=== PATIENT | female | born 1965 | race American Indian/Alaskan Native ===

== ENCOUNTER 2020-07-26 15:42 | Emergency (ER) | payer SELFPAY ==
[2020-07-26 16:14] VITALS: BP 147/88
--- NOTE | 2020-07-26 16:41 | XRay Report ---
CHEST 2 VIEWS INDICATION / CLINICAL INFORMATION: DIFFICULT BREATHING. COMPARISON: None available. FINDINGS: SUPPORT DEVICES: None. HEART / MEDIASTINUM: No significant abnormality. LUNGS / PLEURA: Increased opacities are seen in bilateral lower lungs and to lesser extent upper lung s. No pneumothorax. ADDITIONAL FINDINGS: No significant additional findings. IMPRESSION: 1. Bilateral pulmonary opacities most significant in the mid and lower lungs. Signer Name: Derrick Sinclair MD Signed: 07/26/2020 4:37 PM Workstation Name: [id number]
--- NOTE | 2020-07-26 18:50 | Emergency Department Report ---
ED Shortness of Breath HPI - General Chief Complaint: Dyspnea/Respdistress Stated Complaint: EAMON Source: patient, EMS Mode of arrival: Wheelchair Limitations: No Limitations - History of Present Illness Initial Comments: 55-year-old F [place] female Covid positive for the last 5 days presents emergency department complaining of cough and chest congestion with occasional episodes of feeling a little bit short of breath. Reports fever sensations off and on. Ports no hemoptysis, no hematemesis hematochezia. No coryza no cephalgia but does have a vague episodes of diarrhea. -: Gradual Severity: mild Quality: dull Consistency: constant Improves With: nothing Worsens With: nothing Associated Symptoms: cough Treatments Prior to Arrival: none - Related Data Previous Rx's Medication Instructions Recorded Last Taken Type Albuterol Mdi (or & Nicu Only) 2 puff IH QID PRN #1 inhalation 07/26/20 Unknown Rx [ProAir HFA Inhaler] Azithromycin [Zithromax] 500 mg PO QDAY #5 tablet 07/26/20 Unknown Rx Benzonatate [Tessalon Perles] 100 mg PO Q8HR #20 capsule 07/26/20 Unknown Rx dexAMETHasone [Decadron] 4 mg PO Q12H #6 tablet 07/26/20 Unknown Rx Allergies Allergy/AdvReac Type Severity Reaction Status Date / Time No Known Allergies Allergy Unverified 07/26/20 16:13 ED Review of Systems ROS: Stated complaint: EAMON Other details as noted in HPI Comment: All other systems reviewed and negative ED Past Medical Hx - Past Medical History Previous Medical History?: No - Surgical History Past Surgical History?: No - Medications Home Medications: Home Medications Medication Instructions Recorded Confirmed Last Taken Type Albuterol Mdi (or & Nicu Only) 2 puff IH QID PRN #1 inhalation 07/26/20 Unknown Rx [ProAir HFA Inhaler] Azithromycin [Zithromax] 500 mg PO QDAY #5 tablet 07/26/20 Unknown Rx Benzonatate [Tessalon Perles] 100 mg PO Q8HR #20 capsule 07/26/20 Unknown Rx dexAMETHasone [Decadron] 4 mg PO Q12H #6 tablet 07/26/20 Unknown Rx ED Physical Exam - General Limitations: No Limitations General appearance: alert, in no apparent distress - Head Head exam: Present: atraumatic, normocephalic - Eye Eye exam: Present: normal appearance, PERRL, EOMI Pupils: Present: normal accommodation - ENT ENT exam: Present: normal exam, normal orophraynx, mucous membranes moist, TM's normal bilaterally - Neck Neck exam: Present: normal inspection, full ROM - Respiratory Respiratory exam: Present: normal lung sounds bilaterally. Absent: respiratory distress, wheezes, rales, accessory muscle use, decreased breath sounds, prolonged expiratory - Cardiovascular Cardiovascular Exam: Present: regular rate, normal rhythm. Absent: systolic murmur, diastolic murmur, rubs, gallop - GI/Abdominal GI/Abdominal exam: Present: soft, normal bowel sounds - Extremities Exam Extremities exam: Present: normal inspection, normal capillary refill - Back Exam Back exam: Present: normal inspection. Absent: CVA tenderness (R), CVA tenderness (L) - Neurological Exam Neurological exam: Present: alert, oriented X3, CN II-XII intact, normal gait. Absent: abnormal gait, motor sensory deficit, reflexes normal - Psychiatric Psychiatric exam: Present: normal affect, normal mood. Absent: flat affect, manic, homicidal ideation - Skin Skin exam: Present: warm, dry, intact, normal color. Absent: rash, diaphoretic, erythema, urticaria, petechiae, abrasion, ecchymosis ED Course Vital Signs 07/26/20 16:14 Temperature 99.3 F Pulse Rate 77 Respiratory 22 Rate Blood Pressure 147/88 O2 Sat by Pulse 100 Oximetry ED Medical Decision Making - Radiology Data Radiology results: report reviewed [facility] [address] [place] [address] XRay Report Signed Patient: AQUILES HARDWICK MR#: [id number] 51 : 1965 Acct:[id number] Age/Sex: 55 / F ADM Date: 07/26/20 Loc: ED Attending Dr: Ordering Physician: JONATHAN PHILLIPS Date of Service: 07/26/20 Procedure(s): XR chest routine 2V Accession Number(s): [id number] cc: JONATHAN PHILLIPS Fluoro Time In Minutes: CHEST 2 VIEWS INDICATION / CLINICAL INFORMATION: DIFFICULT BREATHING. COMPARISON: None available. FINDINGS: SUPPORT DEVICES: None. HEART / MEDIASTINUM: No significant abnormality. LUNGS / PLEURA: Increased opacities are seen in bilateral lower lungs and to lesser extent upper lungs. No pneumothorax. ADDITIONAL FINDINGS: No significant additional findings. IMPRESSION: 1. Bilateral pulmonary opacities most significant in the mid and lower lungs. Signer Name: Derrick Lora MD Signed: 07/26/2020 4:37 PM Workstation Name: [id number] Transcribed By: CW Dictated By: OLGA LORA MD Electronically Authenticated By: OLGA LORA MD Signed Date/Time: 07/26/201636 DD/ 35 - Medical Decision Making 55-year-old female coronavirus and what appears to be evolving pneumonia bilateral. She still stable vital signs she is able to ambulate with no limitations and satting 100% on room air. Critical care attestation.: If time is entered above; I have spent that time in minutes in the direct care of this critically ill patient, excluding procedure time. ED Disposition Clinical Impression: Pneumonia, Cough Disposition: DC-01 TO HOME OR SELFCARE Is pt being admited?: No Does the pt Need Aspirin: No Condition: Stable Instructions: Bacterial Pneumonia (ED), Cool Mist Vaporizer, Cough, Adult, Community-Acquired Pneumonia, Adult Prescriptions: dexAMETHasone [Decadron] 4 mg PO Q12H #6 tablet Albuterol Mdi (or & Nicu Only) [ProAir HFA Inhaler] 2 puff IH QID PRN #1 inhalation PRN Reason: Shortness Of Breath Benzonatate [Tessalon Perles] 100 mg PO Q8HR #20 capsule Azithromycin [Zithromax] 500 mg PO QDAY #5 tablet Referrals: PRIMARY CAREMD [Primary Care Provider] - 3-5 Days [facility] [Provider Group] - 3-5 Days
== END 2020-07-26 21:20 | disposition home or self-care (01) ==
LOC: ED 15:42
DX: J18.9 Pneumonia, unspecified organism (principal); R05 Cough; Z79.899 Other long term (current) drug therapy
CPT/HCPCS: 71046

== ENCOUNTER 2021-03-18 17:00 | Emergency (ER) | payer BC ==
[2021-03-18] MEDS ORDERED: cloNIDine 0.2 MG TAB PO ONE (17:46)
--- NOTE | 2021-03-18 18:38 | Emergency Department Report ---
ED General Adult HPI - General Chief complaint: Pain General Stated complaint: LT LEG PAIN/LT SHOULDER PAIN/FATIGUE Time Seen by Provider: 03/18/21 17:34 Source: patient Mode of arrival: Ambulatory Limitations: No Limitations - History of Present Illness Initial comments: Patient is a 55-year-old F [place] female with a past medical history of hypertension diabetes who is presenting with some mild fatigue today. She believes her blood pressure may have went up. She has been out of her blood pressure medicine for months. Denies chest pain shortness of breath cough cold congestion nausea vomiting diarrhea or diaphoresis. Does state that she has some mild shoulder discomfort and some hip discomfort today does not know why she would be hurting. No trauma. 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 Earlier today patient states she took her blood sugar and it was 77 which she states is low for her. She ate afterwards and states she is feeling some improvement will still want to get checked out. - Related Data Previous Rx's Medication Instructions Recorded Last Taken Type Albuterol Mdi (or & Nicu Only) 2 puff IH QID PRN #1 inhalation 07/26/20 Unknown Rx [ProAir HFA Inhaler] Azithromycin [Zithromax] 500 mg PO QDAY #5 tablet 07/26/20 Unknown Rx Benzonatate [Tessalon Perles] 100 mg PO Q8HR #20 capsule 07/26/20 Unknown Rx dexAMETHasone [Decadron] 4 mg PO Q12H #6 tablet 07/26/20 Unknown Rx lisinopriL [Lisinopril] 20 mg PO DAILY #30 tablet 03/18/21 Unknown Rx Allergies Allergy/AdvReac Type Severity Reaction Status Date / Time No Known Allergies Allergy Unverified 07/26/20 16:13 ED Review of Systems ROS: Stated complaint: LT LEG PAIN/LT SHOULDER PAIN/FATIGUE Other details as noted in HPI Comment: All other systems reviewed and negative ED Past Medical Hx - Past Medical History Previous Medical History?: Yes Hx Hypertension: Yes Hx Dementia: Yes - Surgical History Past Surgical History?: No - Medications Home Medications: Home Medications Medication Instructions Recorded Confirmed Last Taken Type Albuterol Mdi (or & Nicu Only) 2 puff IH QID PRN #1 inhalation 07/26/20 Unknown Rx [ProAir HFA Inhaler] Azithromycin [Zithromax] 500 mg PO QDAY #5 tablet 07/26/20 Unknown Rx Benzonatate [Tessalon Perles] 100 mg PO Q8HR #20 capsule 07/26/20 Unknown Rx dexAMETHasone [Decadron] 4 mg PO Q12H #6 tablet 07/26/20 Unknown Rx lisinopriL [Lisinopril] 20 mg PO DAILY #30 tablet 03/18/21 Unknown Rx ED Physical Exam - General Limitations: No Limitations General appearance: alert, in no apparent distress - Head Head exam: Present: atraumatic, normocephalic - Eye Eye exam: Present: normal appearance, PERRL, EOMI - ENT ENT exam: Present: mucous membranes moist - Neck Neck exam: Present: normal inspection - Respiratory Respiratory exam: Present: normal lung sounds bilaterally. Absent: respiratory distress, wheezes, rales, rhonchi - Cardiovascular Cardiovascular Exam: Present: regular rate, normal rhythm, normal heart sounds. Absent: systolic murmur, diastolic murmur, rubs, gallop - GI/Abdominal GI/Abdominal exam: Present: soft, normal bowel sounds. Absent: distended, tenderness, guarding, rebound - Extremities Exam Extremities exam: Present: normal inspection - Back Exam Back exam: Present: normal inspection - Neurological Exam Neurological exam: Present: alert, oriented X3 - Psychiatric Psychiatric exam: Present: normal affect, normal mood - Skin Skin exam: Present: warm, dry, intact, normal color. Absent: rash ED Course Vital Signs 03/18/21 17:12 Temperature 97.8 F Pulse Rate 79 Respiratory 16 Rate Blood Pressure 185/94 [Left] O2 Sat by Pulse 97 Oximetry ED Medical Decision Making - EKG Data 03/18/21 18:35 EKG shows a sinus rhythm with a rate of 77. [place] is slightly leftward. There is left anterior fascicular block present. No ST segment elevations. Nonspecific T wave flattening. - Medical Decision Making Patient is presenting with medical noncompliance with her blood pressure medications. Blood pressure was elevated but she is having no signs of endorgan damage at this time. EKG shows no evidence of STEMI. Patient given Catapres and will be restarted on her lisinopril. Patient is minor musculoskeletal pain and can be treated with [id number] pain medications. Critical care attestation.: If time is entered above; I have spent that time in minutes in the direct care of this critically ill patient, excluding procedure time. ED Disposition Clinical Impression: Hypertensive urgency, Muscle ache Disposition: 01 HOME / SELF CARE / HOMELESS Is pt being admited?: No Does the pt Need Aspirin: No Condition: Stable Instructions: Hypertension During , [id number], Musculoskeletal Pain Prescriptions: lisinopriL [Lisinopril] 20 mg PO DAILY #30 tablet Referrals: WISAM FAROOQ MD [Staff Physician] - 3-5 Days Time of Disposition: 18:37
[2021-03-18 18:40] VITALS: BP 182/88
--- NOTE | 2021-03-21 10:51 | Electrocardiograph Report ---
[facility] Test Date: 2021-03-18 Test Time: 18:20:30 Pat Name: AQUILES HARDWICK Department: Room: Gender: F Four H Agent: BLANCA : 1965 Requested By: ADELAIDA BARTHOLOMEW Order Number: [id number] Reading MD: Al Jeffery Measurements Intervals Hendricks Rate: 77 P: 53 HI: 169 QRS: -58 QRSD: 89 T: 74 QT: 416 QTc: 471 Interpretive Statements Sinus rhythm Left anterior fascicular block non specific st-t No previous ECG available for comparison Electronically Signed On 03-21-2021 10:51:19 EDT by Al Jeffery
== END 2021-03-18 18:55 | disposition home or self-care (01) ==
LOC: ED 17:00
DX: I16.0 Hypertensive urgency (principal); M79.10 Myalgia, unspecified site; I10 Essential (primary) hypertension; E11.8 Type 2 diabetes mellitus with unspecified complications
CPT/HCPCS: 93005; 99282

== ENCOUNTER 2021-07-26 17:34 | Observation (INO) | payer SELFPAY ==
[2021-07-26 21:10] LABS: Alanine Aminotransferase 20 units/L (7-56); Albumin 4.1 g/dL (3.9-5); BUN/Creatinine Ratio 15; Blood Urea Nitrogen 15 mg/dL (7-17); Hemolysis Index 16
[2021-07-26 21:31] LABS: Eosinophils # (Auto) 0.1 K/mm3 (0.0-0.4); Eosinophils % (Auto) 2.3 % (0.0-4.3); Hematocrit 38.5 % (30.3-42.9); Hemoglobin 12.5 gm/dl (10.1-14.3); Lymphocytes # (Auto) 1.9 K/mm3 (1.2-5.4); Lymphocytes % (Auto) 39.2 % (13.4-35.0); Mean Corpuscular HGB Conc 33 % (30-34); Mean Corpuscular Volume 87 fl (79-97); Monocytes # (Auto) 0.3 K/mm3 (0.0-0.8); Monocytes % (Auto) 6.9 % (0.0-7.3); Platelet Count 224 K/mm3 (140-440); Red Blood Count 4.43 M/mm3 (3.65-5.03)
[2021-07-27 04:55] LABS: Basophils % (Auto) 0.5 % (0.0-1.8); Eosinophils # (Auto) 0.1 K/mm3 (0.0-0.4); Eosinophils % (Auto) 2.5 % (0.0-4.3); Hematocrit 39.9 % (30.3-42.9); Hemoglobin 12.9 gm/dl (10.1-14.3); Lymphocytes # (Auto) 1.8 K/mm3 (1.2-5.4); Lymphocytes % (Auto) 41.1 % (13.4-35.0); Mean Corpuscular HGB Conc 32 % (30-34); Mean Corpuscular Volume 88 fl (79-97); Monocytes # (Auto) 0.3 K/mm3 (0.0-0.8); Monocytes % (Auto) 7.3 % (0.0-7.3); Platelet Count 211 K/mm3 (140-440); Red Blood Count 4.53 M/mm3 (3.65-5.03); Red Cell Distribution Width 14.7 % (13.2-15.2)
[2021-07-27 05:21] LABS: BUN/Creatinine Ratio 15; Blood Urea Nitrogen 15 mg/dL (7-17); Hemolysis Index 5
[2021-07-27 12:21] VITALS: BP 150/77
== END 2021-07-27 17:37 | disposition home or self-care (01) ==
LOC: ED 17:34 → 4A 23:54 → INTOOBSV 23:54
PROVIDERS: ADMIT Internal Medicine Geriatric Medicine; ATTEND Internal Medicine
DX: R07.89 Other chest pain (principal); I10 Essential (primary) hypertension; E11.9 Type 2 diabetes mellitus without complications; E66.9 Obesity, unspecified; Z79.82 Long term (current) use of aspirin; Z79.4 Long term (current) use of insulin; Z68.34 Body mass index [BMI] 34.0-34.9, adult
CPT/HCPCS: 36415; 71046; 80048; 80053; 82962; 83690; 84484; 85025; 93005; 93010; 96372; 99285; C8929; G0378; J1644; 93306; Q9967; J1815